=== PATIENT | male | born 1980 | race American Indian/Alaskan Native ===

== ENCOUNTER 2017-09-28 21:45 | Emergency (ER) | payer OTHER ==
[2017-09-29 00:22] VITALS: BMI 32.1
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
[2017-09-29 01:15] VITALS: RESP 18; TEMP 97.8
[2017-09-29 01:21] VITALS: BP 141/78; PULSE 59; O2SAT 98
== END 2017-09-29 01:23 | disposition home or self-care (01) ==
LOC: ED 21:45
DX: M54.5 Low back pain (principal); V79.59XA Passenger on bus injured in collision with other motor vehicles in traffic accident, initial encounter; Y92.410 Unspecified street and highway as the place of occurrence of the external cause
CPT/HCPCS: 96372; 99284; J1885